=== PATIENT | male | born 1970 | race Caucasian/White ===

== ENCOUNTER 2018-02-03 12:27 | Emergency (ER) | payer OTHER ==
[~2018-02-03] VITALS: Ht 167.6 cm; Wt 117.9 kg
[2018-02-03 12:33] VITALS: BP 150/103
[2018-02-03] MEDS ORDERED: VALIUM5 MG PO (13:21)
[2018-02-03] MEDS ORDERED: HYDROCODONE-AP1 EAC6 PO (13:21)
== END 2018-02-03 14:27 | disposition home or self-care (01) ==
LOC: ER 12:27
DX: S86.812A Strain of other muscle(s) and tendon(s) at lower leg level, left leg, initial encounter (principal); X58.XXXA Exposure to other specified factors, initial encounter; Y93.89 Activity, other specified; Y92.89 Other specified places as the place of occurrence of the external cause; Y99.8 Other external cause status